=== PATIENT | female | born 1970 | race Two or more races ===

== ENCOUNTER 2017-05-04 11:12 | Outpatient (CLI) | payer OTHER | END 2017-05-04 11:25 | disposition home or self-care (01) | LOC: MAMO-SONO 11:12 | DX: N64.4 Mastodynia (principal); Z12.31 Encounter for screening mammogram for malignant neoplasm of breast; N60.11 Diffuse cystic mastopathy of right breast; N60.12 Diffuse cystic mastopathy of left breast ==

== ENCOUNTER 2018-05-16 09:54 | Outpatient (CLI) | payer OTHER | END 2018-05-16 10:08 | disposition home or self-care (01) | LOC: MAMO-SONO 09:54 | DX: Z12.31 Encounter for screening mammogram for malignant neoplasm of breast (principal); N64.4 Mastodynia; N60.11 Diffuse cystic mastopathy of right breast ==

== ENCOUNTER → 2019-02-20 | Outpatient (CLI) | payer OTHER | END | disposition home or self-care (01) | LOC: TOM 09:08 | DX: M54.2 Cervicalgia (principal) ==

== ENCOUNTER 2019-02-27 11:32 | Outpatient (CLI) | payer OTHER | END 2019-02-27 15:11 | disposition home or self-care (01) | LOC: SONOGRAMA 11:32 | DX: E04.1 Nontoxic single thyroid nodule (principal) ==

== ENCOUNTER 2020-05-17 09:02 | Outpatient (CLI) | payer OTHER | END 2020-05-17 09:12 | disposition HB | LOC: MAMO-SONO 09:02 | DX: N60.02 Solitary cyst of left breast (principal); N60.01 Solitary cyst of right breast; Z12.31 Encounter for screening mammogram for malignant neoplasm of breast; N64.59 Other signs and symptoms in breast; N64.4 Mastodynia; N60.11 Diffuse cystic mastopathy of right breast; E04.2 Nontoxic multinodular goiter ==

== ENCOUNTER 2021-07-02 11:22 | Outpatient (CLI) | payer OTHER | END 2021-07-02 11:27 | disposition home or self-care (01) | LOC: MAMO-SONO 11:22 | PROVIDERS: ATTEND Obstetrics & Gynecology Maternal & Fetal Medicine | DX: Z12.31 Encounter for screening mammogram for malignant neoplasm of breast (principal); N63 Unspecified lump in breast ==

== ENCOUNTER 2022-07-21 12:01 | Outpatient (CLI) | payer OTHER | END 2022-07-21 12:08 | disposition home or self-care (01) | LOC: MAMO-SONO 12:01 | PROVIDERS: ATTEND Obstetrics & Gynecology | DX: N60.11 Diffuse cystic mastopathy of right breast (principal) ==

== ENCOUNTER 2022-07-30 10:48 | Emergency (ER) | payer OTHER ==
[~2022-07-30] VITALS: Ht 162.6 cm; Wt 53.5 kg
== END 2022-07-30 12:47 | disposition home or self-care (01) ==
LOC: ER 10:48
DX: G43.909 Migraine, unspecified, not intractable, without status migrainosus (principal); Z88.0 Allergy status to penicillin

== ENCOUNTER 2022-09-15 12:24 | Outpatient (CLI) | payer OTHER | END 2022-09-15 12:32 | disposition home or self-care (01) | LOC: SONOGRAMA 12:24 | PROVIDERS: ATTEND Specialist | DX: I13.2 Hypertensive heart and chronic kidney disease with heart failure and with stage 5 chronic kidney disease, or end stage renal disease (principal) ==

== ENCOUNTER 2023-11-09 09:09 | Outpatient (CLI) | payer OTHER | END 2023-11-09 09:18 | disposition home or self-care (01) | LOC: MAMO-SONO 09:09 | PROVIDERS: ATTEND Obstetrics & Gynecology | DX: N60.11 Diffuse cystic mastopathy of right breast (principal); E04.1 Nontoxic single thyroid nodule ==

== ENCOUNTER 2024-02-03 12:05 | Emergency (ER) | payer OTHER ==
[~2024-02-03] VITALS: Ht 162.6 cm; Wt 60.3 kg
[2024-02-03 13:36] LABS: HEMATOCRIT 39.9 % (36.0-45.00); HEMOGLOBIN 13.6 g/dL (12.0-15.00); MEAN CORPUSCULAR HEMOGLOBIN 30.6 pg (27.00-32.0); PLATELET COUNT 272 K/uL (150-450); RED BLOOD COUNT 4.44 M/uL (4.00-6.00); RED CELL DISTRIBUTION WIDTH 13.1 % (11.5-14.5)
[2024-02-03 14:09] LABS: PH,URINE 6.5 (5.0-8.0); URINE APPEARANCE Clear; URINE BILIRRUBIN Negative (NEGATIVE); URINE BLOOD Moderate; URINE COLOR Yellow; URINE GLUCOSE Negative (NEGATIVE); URINE KETONE Trace (NEGATIVE); URINE LEUKOCYTE Negative; URINE NITRATE Negative; URINE PROTEIN Negative (NEGATIVE); URINE UROBILINOGEN 0.2 E.U./dl
[2024-02-03 14:10] LABS: URINE BACTERIA 27.7 uL (0.0-1933); URINE EPITHELIAL CELLS 6.7 uL (0.0-38.8); URINE RBC 358.5 uL (0.0-20.8); URINE WBC 5.6 uL (0.0-23.2)
[2024-02-03 14:14] LABS: URINE CAST 0.15 uL (0.0-1.40)
[2024-02-03 14:17] LABS: ALBUMIN 3.8 gm/dL (3.4-5.0); BILIRUBIN TOTAL 0.32 mg/dL (0.3-1.2); CALCIUM 9.7 mg/dL (8.5-10.1); CREATININE SERUM 0.79 mg/dL (0.55-1.02); GFR 75.56; GLOBULINA 3.7 G/DL (2.4-3.5); POTASSIUM 3.95 mEq/L (3.5-5.1); T4 FREE 0.94 NG/ML (0.76-1.46); TOTAL PROTEIN 7.5 gm/dL (6.4-8.2)
== END 2024-02-03 15:05 | disposition home or self-care (01) ==
LOC: ER 12:06
PROVIDERS: General Practice
DX: R53.1 Weakness (principal); Z88.0 Allergy status to penicillin